=== PATIENT | female | born 1975 | race Caucasian/White ===

== ENCOUNTER → 2016-06-07 | Outpatient (CLI) | payer BC ==
[~2016-06-07] MED LIST: CELEBREX50 MG PO; TRI-SPRINTEC 281 TAB PO
== END ==
LOC: COL.RAD 06-03 12:30
DX: Z53.9 Procedure and treatment not carried out, unspecified reason (principal)

== ENCOUNTER → 2016-06-18 | Outpatient (CLI) | payer BC | LOC: COL.RAD 06-13 12:30 | DX: M19.072 Primary osteoarthritis, left ankle and foot (principal) ==

== ENCOUNTER → 2016-08-16 | Outpatient (CLI) | payer BC | LOC: COL.RAD 07:56 | DX: M25.572 Pain in left ankle and joints of left foot (principal) | CPT/HCPCS: J3301; Q9967 ==

== ENCOUNTER 2016-09-29 20:44 | Emergency (ER) | payer BC ==
[~2016-09-29] VITALS: Ht 157.5 cm; Wt 78.6 kg
[2016-09-29 20:47] VITALS: TEMP 97.9
[2016-09-29] MEDS ORDERED: CELEBREX50 MG PO (20:50)
[2016-09-29 21:25] LABS: BASO % 0.6 % (0.0-2.0); EOS # 0.2 (0.0-0.7); EOS % 3.2 % (0-4.0); GRAN # 3.9 (1.4-6.5); GRAN % 54.4 % (42.2-75.2); HEMATOCRIT 39.2 % (37.0-47.0); HEMOGLOBIN 13.2 g/dl (12.5-16.0); LYMPH # 2.5 (1.2-3.4); LYMPH % 35.5 % (20.0-51.0); MEAN CELL VOLUME 90 fl (80.0-100.0); MEAN CORPUSCULAR HEMOGLOBIN 30 pg (27.0-31.0); MEAN CORPUSCULAR HGB CONC 34 g/dl (33.0-37.0); MEAN PLATELET VOLUME 11.5 fl (7.4-10.4); MONO # 0.4 (0.1-0.6); PLATELET COUNT 223 K/mm3 (130-400); RED BLOOD COUNT 4.38 M/mm3 (4.10-5.30); REDCELL DISTRIBUTION WIDTH-CV 13.3 % (11.5-14.5); WHITE BLOOD COUNT 7.1 K/mm3 (4.8-10.8)
[2016-09-29 21:34] LABS: CALCIUM 9.4 mg/dL (8.4-10.2); CREATININE, serum 0.68 mg/dL (0.52-1.25); POTASSIUM 3.6 mmol/L (3.4-5.0)
[2016-09-29] MEDS ORDERED: TRI-SPRINTEC 281 TAB PO (21:41)
[2016-09-29 21:56] VITALS: BP 151/74; PULSE 77
== END 2016-09-29 21:56 | disposition home or self-care (01) ==
LOC: COL.ER 20:44
PROVIDERS: Emergency Medicine
DX: N93.9 Abnormal uterine and vaginal bleeding, unspecified (principal); Z98.51 Tubal ligation status
CPT/HCPCS: J7030

== ENCOUNTER → 2016-11-20 | Outpatient (CLI) | payer BC | LOC: COL.RAD 10:00 | DX: M25.572 Pain in left ankle and joints of left foot (principal) | CPT/HCPCS: J3301; Q9967 ==